=== PATIENT | male | born 1940 | race Caucasian/White ===

== ENCOUNTER → 2017-05-20 | Outpatient (CLI) | payer MEDICARE, BC ==
--- NOTE | 2017-05-22 17:56 | PE ---
EXAMINATION TYPE: PET CT fusion whole body DATE OF EXAM: 05/20/2017 CLINICAL HISTORY: 77-year-old male initial staging melanoma TECHNIQUE: Following the intravenous administration of 14.46 mCi of F-18 FDG, whole body images are performed from the skull base to the midthigh. Images are reviewed on the computer in the coronal, axial, and sagittal planes. Reconstructed rotating images are created on independent workstation and reviewed on the computer. A localization and attenuation correction CT is performed in conjunction with the PET scan. Glucose level: 118 mg/dL CTDI: 4.27mGy DLP: 530.61mGy-cm COMPARISON: None. FINDINGS: PET: Nonenlarged but focally hypermetabolic left axillary lymph node measuring 1.1 cm, max SUV 10.2. There is a tiny low posterior left axillary lymph node deep to the lateral margin of the latissimus d orsi near the level of the inferior scapular tip measuring 7 mm showing mild uptake, max SUV 2.4 (axi al image 140). Trace left effusion and lobulated subpleural masslike thickening posterior left lower lobe which show s no discrete FDG uptake and measures up to 5.2 cm wide. Hypodense lesions within both kidneys, largest measuring 4.5 cm on the left and 2.9 cm on the right d o not seem to show discrete FDG uptake, suggestive of cysts. Uptake left paramedian mid abdomen localizes to the ureter compatible with excreting FDG. Moderate uptake relating to the patient's right lower quadrant ostomy. Otherwise, physiologic FDG uptake within the neck, chest, abdomen, and pelvis. ATTENUATION CORRECTION CT: Right greater than left maxillary sinus air-fluid levels. No cervical lymphadenopathy. Moderate bilateral gynecomastia. Heart upper limits of normal in size without pericardial effusion. C oronary vessel calcifications are present in remarkable for coronary artery disease. Aorta normal jenna iber with conventional arch vessel branching anatomy. Aside from the left axillary lymph nodes mentio aiden above, no other thoracic lymphadenopathy seen. 5 mm nonobstructive left renal calculus. Renal lesions mentioned above. IVC filter. Moderate atherosc lerotic calcifications within the abdominal aorta. Right lower quadrant ostomy mentioned above. No me senteric or retroperitoneal lymphadenopathy seen. Zakia's pouch. Mcgregor catheter in place. Circumferential bladder wall thickening, intraluminal blad hortencia air, and a 1.4 cm left-sided bladder calculus. Prostatomegaly and 5.5 cm wide. No pelvic lymphade nopathy or abnormal fluid collection seen. Bones: Diffuse muscular atrophy and degenerative changes throughout the spine. IMPRESSION: 1. A 1.1 cm left axillary monika metastasis. An adjacent tiny 7 mm lower and posterior axillary lymph node shows mild uptake and is also suspicious. 2. No other evidence for metastatic disease. 3. Trace left effusion with masslike subpleural consolidation left lower lobe measuring 5.2 cm. An ar ea of rounded atelectasis is suspected. The lack of FDG uptake here makes neoplasm very unlikely. Dimmitt ssess on patient's follow-up. 4. Incidental: 5 mm nonobstructive left renal calculus, 1.4 cm bladder calculus, IVC filter, right lo wer quadrant ostomy and Zakia's pouch. 5. Incidental: Mcgregor in place. Intraluminal bladder air likely relating to instrumentation. Prostatom egaly and circumferential bladder wall thickening which may be secondary to cystitis or wall hypertro phy from BPH.
== END | disposition home or self-care (01) ==
LOC: RADPETMAIN 12:35
PROVIDERS: ATTEND Internal Medicine Hematology & Oncology
DX: C43.62 Malignant melanoma of left upper limb, including shoulder (principal); C77.3 Secondary and unspecified malignant neoplasm of axilla and upper limb lymph nodes; N20.0 Calculus of kidney; N21.0 Calculus in bladder; N40.0 Benign prostatic hyperplasia without lower urinary tract symptoms; K82.8 Other specified diseases of gallbladder; N32.89 Other specified disorders of bladder; R91.8 Other nonspecific abnormal finding of lung field; Z98.890 Other specified postprocedural states
CPT/HCPCS: 78816; A9552

== ENCOUNTER 2017-06-08 11:49 | Day surgery (SDC) | payer MEDICARE, BC ==
[2017-06-05 13:04] VITALS: BMI 25.7
--- NOTE | 2017-06-07 07:52 | P.GSHP ---
History of Present Illness H&P Date: 06/08/17 Chief Complaint: Melanoma 77-year-old male was diagnosed with melanoma involving the left upper arm. This was a thick lesion measuring 7.8 mm. This had ulceration as well as microsatellite nodules. The patient was initially referred to the [facility] melanoma clinic however the patient refused because of his difficulties with transportation. The patient is paraplegic and bedbound and has significant difficulties transporting to and from offices in hospitals. He has to pay [employer] for most of these transportation's. He would only allow definitive surgical treatment to be done here locally. A PET scan was performed which revealed 2 separate lymph nodes showing hypermetabolic activity in the left axilla measuring 7 and 11 mm. I was contacted by gynecology with a request to proceed with a wide excision and sentinel lymph node biopsy on this patient. Patient I had a long conversation by phone. He essentially refused a visit in the office but was agreeable to proceeding with a scheduled surgical procedure. Past Medical History Past Medical History: Cancer, Diabetes Mellitus, Hypertension, Skin Disorder Additional Past Medical History / Comment(s): urinary retention, hx. urinary tract infection, has a open area on stomach and pinpoint area on coccyx. Patient is in bed most of the time and has a w/c to get around the house. Has a Melanoma L upper arm.Has a ryees catheter and ileostomy. Hx. of ulcerative colitis. Severe frozen L shoulder. History of Any Multi-Drug Resistant Organisms: MRSA Date of last positivie culture/infection: 2011 MDRO Source:: Stomach Past Surgical History: Bowel Resection, Cholecystectomy, Tonsillectomy Additional Past Surgical History / Comment(s): Stent in LLL. Past Anesthesia/Blood Transfusion Reactions: No Reported Reaction Smoking Status: Never smoker - Past Family History Mother Family Medical History: Cancer Additional Family Medical History / Comment(s): Lymphoma Medications and Allergies Home Medications Medication Instructions Recorded Confirmed Type Furosemide [Lasix] 20 mg PO DAILY 11/01/13 06/05/17 History Metoprolol Tartrate [Lopressor] 50 mg PO DAILY 11/01/13 06/05/17 History Oxybutynin Chloride [Ditropan XL] 10 mg PO DAILY PRN #10 tab 11/01/13 06/05/17 Rx oxyCODONE-APAP 5-325MG [Percocet 1 tab PO Q6H 11/01/13 06/05/17 History 5-325 mg] traZODone HCL [Desyrel] 100 mg PO HS 11/01/13 06/05/17 History Ascorbic Acid [Vitamin C] 1,000 mg PO DAILY 06/05/17 06/05/17 History Cholecalciferol [Vitamin D3] 400 unit PO DAILY@1200 06/05/17 06/05/17 History Cranberry Fruit Extract [Cranberry] 200 mg PO DAILY 06/05/17 06/05/17 History Ferrous Sulfate [Feosol] 325 mg PO DAILY 06/05/17 06/05/17 History Folic Acid 1 mg PO DAILY 06/05/17 06/05/17 History Nystatin 100,000Unit/gm Cream 1 applic TOPICAL BID 06/05/17 06/05/17 History [Mycostatin Cream] Thera-Oral(Unknown Dose) 100 mg PO DAILY 06/05/17 06/05/17 History metFORMIN HCL [Glucophage] 500 mg PO BID 06/05/17 06/05/17 History Allergies Allergy/AdvReac Type Severity Reaction Status Date / Time diphenhydramine HCl Allergy Itching Verified 06/05/17 12:22 [From Benadryl] morphine Allergy Hallucinati Verified 06/05/17 12:22 ons Surgical - Exam Deferred until he arrives tomorrow. Please refer to the consultation from Dr. Grijalva. Assessment and Plan (1) Melanoma Narrative/Plan: Will proceed with wide local excision along with sentinel lymph node biopsy left axilla. Possible completion axillary node dissection. Risks of bleeding, infection, seroma, nerve injury, recurrence, poor healing, wound formation, scarring, anesthesia related complications were discussed. He understands and wishes to proceed. Status: Acute Code(s): C43.9 - MALIGNANT MELANOMA OF SKIN, UNSPECIFIED SNOMED Code(s): 725255075
[~2017-06-08 11:49] MED LIST: DEXAMETHASONE SOD PHOSPHATE 10 MG/ML 1 ML VIAL IV ONE; HEPARIN SODIUM,PORCINE 5,000 UNIT/ML 1 ML VIAL SQ ONE; ONDANSETRON 4 MG/2 ML VIAL IVP ONE; Pre Op ABX Message 1 EACH MISC MISCELLANE ONE
[2017-06-08 12:27] LABS: Glucose,Whole Blood 139 mg/dL (75-99)
[2017-06-08] MEDS: LACTATED RINGERS 1,000 ML IV SCH ×2 (12:27→22:30)
--- NOTE | 2017-06-08 14:43 | NM ---
EXAMINATION TYPE: NM sentinel node imaging DATE OF EXAM: 06/08/2017 COMPARISON: NONE HISTORY: Malignant melanoma posterior left upper arm TECHNIQUE AND FINDINGS: The procedure of sentinel lymph node injection was explained to the patient. The benefits, alternatives, and risks were discussed. An informed consent was then obtained. Overlying skin is cleaned with sterile alcohol. Lidocaine buffered with bicarbonate was used as anes thetic into the skin and subcutaneous tissue surrounding the surgical scar. Following this, 506 uCi Tc 99m Filtered Sulfur Colloid was injected into 4 equivalent doses at 12, 3, 6, and 9:00 position perez rrounding the skin incision in the posterior left upper arm. Imaging was performed. The injection sites were massaged by nuclear medicine technician for 10 minutes after injection. T he patient tolerated the procedure well without any immediate complication. The patient was kept in the radiology department for short stay after the procedure and then taken to surgery for a surgical procedure. IMPRESSION: Left posterior upper arm radiotracer injection for sentinel node localization as above.
[2017-06-08] MEDS ORDERED: GLYCOPYRROLATE 0.2 MG/ML 2 ML VIAL ONE (15:09)
[2017-06-08] MEDS ORDERED: HEPARIN SODIUM,PORCINE 5,000 UNIT/ML 1 ML VIAL ONE (15:09)
[2017-06-08] MEDS ORDERED: NEOSTIGMINE 1 MG/ML 10 ML VIAL ONE (15:09)
[2017-06-08] MEDS ORDERED: PROPOFOL 10 MG/ML 20 ML VIAL IV ONE (15:09)
[2017-06-08] MEDS ORDERED: fentaNYL (PF) 50 MCG/ML 2 ML AMP ONE (15:09)
[2017-06-08] MEDS ORDERED: PHENYLEPHRINE-0.9% NACL SYG 1 MG/10 ML SYRINGE ONE (15:09)
[2017-06-08] MEDS ORDERED: ROCURONIUM BROMIDE 10 MG/ML 10 ML VIAL IV ONE (15:09)
[2017-06-08] MEDS ORDERED: MIDAZOLAM 2 MG/2 ML VIAL ONE (15:09)
[2017-06-08] MEDS ORDERED: LIDOCAINE 1% INJ 10MG/ML (20 ML MDV) ONE (15:09)
--- NOTE | 2017-06-08 15:20 | P.HPADDEND ---
H&P Addendum H&P Addendum Date: 06/08/17 Seen in preop after his nuclear medicine injection. Exam: Vertical scar present posterior to the posterior axillary line on the left. Scar is approximately 4 cm in length, no surrounding melanotic lesions. Patient has a significant degree of limitation to the movement of the left shoulder and is unable to bring the humerus more than 20-30 and an anterior or lateral position. No palpable lymph nodes. The lymphoscintigraphy scan revealed no uptake in the axilla or the neck. We will place the patient under general anesthesia. With muscle relaxation will reevaluate our ability to operate on the axilla. Tentatively still plan to proceed with methylene blue injection and sentinel lymph node biopsy in the axilla. Possible lymph node dissection. He discussed the possibility of leaving a drain. We also discussed the possibility of aborting our lymph node dissection if the limitation of mobility at the shoulder made this procedure unsafe. Risks of bleeding, infection, seroma, nerve injury, wound formation, recurrence was reviewed. He and his understand and wish to proceed.
[2017-06-08] MEDS ORDERED: METHYLENE BLUE 10 MG/ML (10 ML VIAL) INJ ONE (15:32)
[2017-06-08] MEDS ORDERED: SODIUM CHLORIDE 0.9% 100 ML with ceFAZolin 2,000 MG IV ONE ×2 (15:35)
[2017-06-08] MEDS ORDERED: LACTATED RINGERS 1,000 ML IV ONE ×2 (16:37→17:07)
[2017-06-08] MEDS ORDERED: BACITRACIN OINT 1 EACH PACKET TOPICAL ONE (17:15)
[2017-06-08] MEDS ORDERED: NALOXONE 0.4 MG/ML 1 ML VIAL IV PRN (17:38)
[2017-06-08] MEDS ORDERED: HYDROmorphone 4 MG/ML 1 ML SYRINGE IVP PRN (17:38)
[2017-06-08] MEDS ORDERED: ONDANSETRON 4 MG/2 ML VIAL IVP PRN (17:38)
[2017-06-08] MEDS ORDERED: HYDROcodone/APAP 5-325MG 1 EACH TAB PO PRN (17:38)
[2017-06-08] MEDS: HYDROmorphone 0.5 MG/0.5 ML SYRINGE IVP PRN ×4 (17:45→18:15)
--- NOTE | 2017-06-08 17:50 | P.OP ---
Date of Procedure: 06/08/17 Procedure(s) Performed: PREOPERATIVE DIAGNOSIS: Left arm melanoma POSTOPERATIVE DIAGNOSIS: Same PROCEDURE: Wide excision left arm melanoma, left axillary lymph node dissection SURGEON: Surjit EBL: 10 mL ANESTHESIA: Gen. COMPLICATIONS: None OPERATIVE PROCEDURE: Patient is brought in place never table in the supine position. The patient was placed under general anesthesia. The patient's melanoma scar was present in the most proximal posterior lateral brachial region. The skin was prepped. I then injected 3 mL of methylene blue into the subcutaneous tissues surrounding the prior scar site. The arm and axillary region was prepped and draped in the usual sterile fashion at that time. Using the portable [place] counter the axilla was inspected. There was no activity which was consistent with the lymphoscintigraphy scan that showed no passage of contrast beyond the injection site. The neck was also examined and appeared normal. A curvilinear incision was made along the inferior axillary hairline. Dissection through the subcutaneous tissues and the clavipectoral fascia took place. The probe was again used and no activity was identified. I could not visualize any bluish discoloration. Upon inspecting the axillary contents there were 2 pigmented appearing nodes I proceeded with a axillary node dissection. Visualization was quite limited because of the patient's frozen shoulder. I was able to visualize the course of the axillary vein the thoracodorsal vasculature and the course of the long thoracic nerve. The axillar contents within that space was excised using electrocautery and the Harmonic scalpel. Larger vessels were ligated using 3-0 silk ties. The operative site was irrigated and no bleeding was seen. The subcutaneous tissues were closed using 3-0 Vicryl sutures and the skin using a running 4-0 Monocryl subcuticular suture. Next the prior scar site was addressed. An elliptical incision was made around the prior scar with a 1.5 cm circumferential margin. Dissection through the subcutaneous tissues took place using electrocautery. The saphenous tissues were then reapproximated using 3-0 Vicryl sutures and the skin using 4-0 nylon sutures. A middle horizontal mattress suture was placed and then on the either side of that 2 separate running 4-0 nylon sutures were placed. Sterile dressings were applied to both locations. A 19-Khmer channel drain was placed in the axillary space and brought out inferiorly. This was sutured to the skin using a 2-0 silk stitch. DISPOSITION: Stable to recovery room
[2017-06-08 18:42] LABS: Glucose,Whole Blood 132 mg/dL (75-99)
[2017-06-08] MEDS ORDERED: HYDROmorphone 0.5 MG/0.5 ML SYRINGE IVP PRN (19:15)
[2017-06-08] MEDS: oxyCODONE-APAP 7.5-325MG 1 EACH TAB PO PRN (19:29)
[2017-06-08] MEDS ORDERED: OXYBUTYNIN 10 MG TAB.ER.24 PO PRN (20:46)
[2017-06-08] MEDS ORDERED: traZODone HCL 100 MG TAB PO SCH (21:00)
[2017-06-08] MEDS ORDERED: METOPROLOL TARTRATE 50 MG TAB PO SCH (21:28)
--- NOTE | 2017-06-08 21:51 | CONS ---
CONSULTATION REASON FOR CONSULTATION: Advice regarding diabetes mellitus and other medical issues, requested by Dr. Eddy. HISTORY OF PRESENT ILLNESS: This 77-year-old gentleman has a past medical history of diabetes mellitus, hypertension, history of urinary retention, history of bowel resection, cholecystectomy, depression. HOME MEDICATIONS: 1. Multivitamins 1 p.o. daily. 2. Nystatin. 3. Lopressor 50 mg p.o. daily. 4. Oxycodone 5 mg q.6 p.r.n. 5. Cranberry 200 mg p.o. daily. 6. Vitamin C 1000 mg daily. 7. Folic acid 1 mg daily. 8. Iron sulfate 325 mg daily. 9. Vitamin D3 400 units daily. 10.Glucophage 500 mg p.o. b.i.d. 11.Desyrel 100 mg p.o. at bedtime. 12.Ditropan XL 10 mg daily p.r.n. 13.Lasix 20 mg p.o. daily. 14.Percocet 7.5 mg 1 tablet q.6 p.r.n. ALLERGIES: 1. BENADRYL. 2. LATEX. 3. MORPHINE. FAMILY HISTORY: History of cancer, lymphoma. SOCIAL HISTORY: No history of smoking. No history of alcohol intake. REVIEW OF SYSTEMS: ENT: No diminished hearing. No diminished vision. CARDIOVASCULAR SYSTEM: No angina, palpitations. RESPIRATORY SYSTEM: No cough, hemoptysis. GI: No nausea, vomiting. : No dysuria or retention. NERVOUS SYSTEM: No numbness, weakness. ALLERGY/IMMUNOLOGY: No asthma, hayfever. MUSCULOSKELETAL: As mentioned earlier. HEMATOLOGY/ONCOLOGY: As mentioned earlier. ENDOCRINE: As mentioned earlier. CONSTITUTIONAL: As mentioned earlier. DERMATOLOGY: Negative. RHEUMATOLOGY: Negative. PSYCHIATRY: As mentioned earlier. PHYSICAL EXAMINATION: Patient alert and oriented x3. Pulse 102, blood pressure 142/70, respiration 18, temperature 97.4, pulse ox 97% on room air. HEENT: Conjunctivae normal. Oral mucosa moist. NECK: No jugular venous distention. No carotid bruit. No lymph node enlargement. CARDIOVASCULAR SYSTEM: S1, S2 muffled. No S3. No S4. RESPIRATORY SYSTEM: Breath sounds diminished at the bases. A few rhonchi. No crackles. ABDOMEN: Soft, nontender. No mass palpable. LEGS: No edema. No swelling. NERVOUS SYSTEM: Higher functions as mentioned earlier. No focal deficit. Motor or sensory deficit. EXAMINATION OF LEFT ARM: Status post surgery with lymph node resection. SKIN: As mentioned earlier. JOINTS: No active deforming arthropathy. LABS: Accu-Cheks 139, 132. ASSESSMENT: 1. Status post wide excision of the left arm melanoma, left axillary lymph node dissection. 2. History of diabetes mellitus, type 2. 3. Hypertension. 4. Urinary retention. 5. Bowel resection. 6. Cholecystectomy. 7. History of tonsillectomy. 8. History of methicillin-resistant Staphylococcus aureus. 9. History of urinary tract infection. RECOMMENDATIONS AND DISCUSSION: I recommend to continue current medication, continue symptomatic treatment. I would recommend initiating home medications. Accu-Cheks before meals and at bedtime. Incentive spirometry. DVT prophylaxis. We will follow the patient closely with you. The patient may be asked to follow with his primary physician closely. Thank you, Dr. Eddy, for letting us participate in the care of this patient. MMODL / IJN: [id number] /
[2017-06-08] MEDS: metFORMIN 500 MG TAB PO SCH (22:29)
[2017-06-08] MEDS: NYSTATIN 100,000UNIT/GM CREAM 30 GM TUBE TOPICAL SCH (22:29)
[2017-06-09] MEDS: INSULIN ASPART 100 UNIT/ML 1 ML 10 ML VIAL SQ SCH ×3 (00:48→13:10)
[2017-06-09] MEDS: oxyCODONE-APAP 7.5-325MG 1 EACH TAB PO PRN ×2 (00:51→07:06)
[2017-06-09] MEDS: D5-0.45% NACL WITH KCL 20MEQ/L 1,000 ML IV SCH ×2 (00:58→03:19)
[2017-06-09 06:54] LABS: Glucose,Whole Blood 124 mg/dL (75-99)
[2017-06-09] MEDS ORDERED: METOPROLOL TARTRATE 50 MG TAB PO SCH (09:00)
[2017-06-09] MEDS ORDERED: FERROUS SULFATE 325 MG TAB PO SCH (09:00)
[2017-06-09] MEDS ORDERED: FUROSEMIDE 20 MG TAB PO SCH (09:00)
[2017-06-09 09:39] VITALS: BP 115/63; PULSE 68; RESP 16; TEMP 98.2
[2017-06-09] MEDS: NYSTATIN 100,000UNIT/GM CREAM 30 GM TUBE TOPICAL SCH (09:52)
[2017-06-09] MEDS: metFORMIN 500 MG TAB PO SCH (09:53)
--- NOTE | 2017-06-09 09:54 | P.DS ---
<Dara Mcelroy M - Last Filed: 06/09/17 09:40> Providers Expected date of discharge: 06/09/17 Attending physician: Mal Eddy Consults: 06/08/17 18:51 Consult Physician Routine Consulting Provider: Stella Campbell Consult Reason/Comments: Medical management Do you want consulting provider notified?: Yes Primary care physician: Stated None Hospital Course: 77-year-old male who was diagnosed with myeloma involving the left upper arm. Patient initially was referred to the [facility] myeloma clinic however the patient refused because of the difficulty with transportation. Patient is a paraplegic bedbound. Has significant difficulty with transferring to and from hospitals and offices. PET scan was performed did show 2 separate lymph nodes showing hypermetabolic activity in the left axillary measuring [address] Eddy was contacted by Dr. Grijalva request for a wide excision and sentinel lymph node biopsy patient underwent procedure on June 08 wide excision left arm melanoma, left axillary lymph node dissection was done postprocedure LAMONT drain in place suture line no redness. Patient has a visiting physician and his is his primary care provider patient was felt to be hemodynamically stable and appropriate proceed with a discharge to home patient was discharged via the EMS system Impression discharge diagnosis Postop June 08 wide excision left arm myeloma, left axillary lymph node dissection Diagnosed myeloma involving the left upper arm Chronic debility wheelchair bedbound The above impression and plan of care have been discussed and directed by signing physician. Dara Mcelroy nurse practitioner acting as scribe for signing physician. Plan - Discharge Summary Discharge Rx Participant: No New Discharge Prescriptions: New oxyCODONE HCL/ACETAMINOPHEN [Percocet 7.5-325 mg] 1 tab PO Q6HR PRN #30 tab PRN Reason: pAIN Continue Oxybutynin Chloride [Ditropan XL] 10 mg PO DAILY PRN #10 tab PRN Reason: Spasms traZODone HCL [Desyrel] 100 mg PO HS Furosemide [Lasix] 20 mg PO DAILY Metoprolol Tartrate [Lopressor] 50 mg PO HS oxyCODONE-APAP 5-325MG [Percocet 5-325 mg] 1 tab PO Q6H Nystatin 100,000Unit/gm Cream [Mycostatin Cream] 1 applic TOPICAL BID Folic Acid 1 mg PO DAILY Cholecalciferol [Vitamin D3] 400 unit PO DAILY@1200 metFORMIN HCL [Glucophage] 500 mg PO BID Ferrous Sulfate [Feosol] 325 mg PO DAILY Thera-Oral(Unknown Dose) 100 mg PO DAILY Cranberry Fruit Extract [Cranberry] 200 mg PO DAILY Ascorbic Acid [Vitamin C] 1,000 mg PO DAILY Discharge Medication List Furosemide [Lasix] 20 mg PO DAILY 11/01/13 [History] Metoprolol Tartrate [Lopressor] 50 mg PO HS 11/01/13 [History] Oxybutynin Chloride [Ditropan XL] 10 mg PO DAILY PRN #10 tab 11/01/13 [Rx] oxyCODONE-APAP 5-325MG [Percocet 5-325 mg] 1 tab PO Q6H 11/01/13 [History] traZODone HCL [Desyrel] 100 mg PO HS 11/01/13 [History] Ascorbic Acid [Vitamin C] 1,000 mg PO DAILY 06/05/17 [History] Cholecalciferol [Vitamin D3] 400 unit PO DAILY@1200 06/05/17 [History] Cranberry Fruit Extract [Cranberry] 200 mg PO DAILY 06/05/17 [History] Ferrous Sulfate [Feosol] 325 mg PO DAILY 06/05/17 [History] Folic Acid 1 mg PO DAILY 06/05/17 [History] Nystatin 100,000Unit/gm Cream [Mycostatin Cream] 1 applic TOPICAL BID 06/05/17 [ History] Thera-Oral(Unknown Dose) 100 mg PO DAILY 06/05/17 [History] metFORMIN HCL [Glucophage] 500 mg PO BID 06/05/17 [History] oxyCODONE HCL/ACETAMINOPHEN [Percocet 7.5-325 mg] 1 tab PO Q6HR PRN #30 tab 12/16 [Rx] Follow up Appointment(s)/Referral(s): Mal Eddy MD [Medical Doctor] - 1 Week [facility] Visiting Nurse, [NON-STAFF] - Lane Damon MD [STAFF PHYSICIAN] - 1 Week Patient Instructions/Handouts: Hernan-Vincent Drain Care (DC) Activity/Diet/Wound Care/Special Instructions: No tub bath for six weeks. Shower daily. No lifting over 4 pounds for the next 6 weeks. Monitor LAMONT drain and record. May use ice packs to surgical site. Continue follow-up with visiting physicians Discharge Disposition: HOME WITH HOME HEALTH SERVICES <Mal Eddy - Last Filed: 06/09/17 14:16> - Discharge Diagnosis(es) (1) Melanoma Status: Acute Hospital Course: As above. Patient doing well. Stable for discharge.
[2017-06-09 11:42] LABS: Hemoglobin A1C 5.5 % (4.0-6.0)
[2017-06-09] MEDS ORDERED: MULTIVITAMINS, THERA 1 EACH TAB PO SCH (12:00)
[2017-06-09] MEDS ORDERED: FOLIC ACID 1 MG TAB PO SCH (12:00)
[2017-06-09] MEDS ORDERED: CHOLECALCIFEROL 400 UNIT TAB PO SCH (12:00)
--- NOTE | 2017-06-09 18:49 | PN ---
PROGRESS NOTE DATE OF SERVICE: 06/09/2017. INTERVAL HISTORY: This 77-year-old gentleman who was admitted after melanoma surgery is being closely monitored. No chest pain. No palpitations. No fever. PHYSICAL EXAM: Alert and oriented x3. Pulse 68, blood pressure 115/56, respirations 16, temperature 98.2, pulse ox 98% on room air. HEENT: Conjunctivae normal. Oral mucosa moist. NECK: No jugular venous distention. No carotid bruit. No lymph node enlargement. CARDIOVASCULAR: S1, S2. RESPIRATORY: Breath sounds diminished in the bases. No rhonchi. No crackles. ABDOMEN: Soft, nontender. LEGS: No edema, no swelling. Left arm, status post surgery. LABS: Accu-Cheks 132, 111 and 125. Hemoglobin A1c is 5.5. ASSESSMENT: 1. Status post wide excision of the left arm melanoma, left axillary lymph node dissection. 2. History of diabetes mellitus type 2. 3. Hypertension. 4. Urinary retention. 5. Bowel resection. 6. History of cholecystectomy. 7. History of tonsillectomy. 8. History of Methicillin-resistant Staphylococcus aureus. 9. History urinary tract infection. RECOMMENDATION AND DISCUSSION: I recommend to continue current management and symptomatic treatment. Otherwise at this time I would recommend monitor closely and monitor Accu-Cheks a.c. and at bedtime and closely follow with primary physician. Further recommendations to follow. MMODL / IJN: [id number] /
--- NOTE | 2017-06-13 12:27 | CDI ---
Outpatient Documentation Clarification Form Date: 06/13/17 CDS/Automotive Internet Sales Consultant Name: Steff Dodd Phone: If any questions, call Irma Hodges Histologic Technician at [phone] Patient Name: Aurelio Mireles Admit Date: 06/08/17 Discharge Date: 06/09/17 ATTENTION: The [facility] Coding Staff appreciate your assistance in clarifying documentation. Please respond to the clarification below the line at the bottom and electronically sign. The [facility] Coding staff will review the response and follow-up if needed. Please note: Queries are made part of the Legal Health Record. If you have any questions, please contact the Histologic Technician. Dear Dr. Eddy What is the size (cm) of the left arm melanoma excision? What is the length (cm) of the left arm closure/repair? Thank you for your kind consideration. size 3cm, length 6cm MTDD
--- NOTE | 2017-07-12 12:02 | CDI ---
Outpatient Documentation Clarification Form Date: 07/11/17 CDS/Fruit Canner Name: Steff Dodd Phone: If any questions, call Irma Hodges Insurance Job Titles at [phone] Patient Name: Aurelio Mireles Admit Date: 06/08/17 Discharge Date: 06/09/17 ATTENTION: The [facility] Coding Staff appreciate your assistance in clarifying documentation. Please respond to the clarification below the line at the bottom and electronically sign. The [facility] Coding staff will review the response and follow-up if needed. Please note: Queries are made part of the Legal Health Record. If you have any questions, please contact the Insurance Job Titles. Dear Dr. Eddy What is the size (cm) of the left arm melanoma excision? What is the length (cm) of the left arm closure/repair? Thank you for your kind consideration. MTDD
== END 2017-06-09 13:22 | disposition home health service (06) ==
LOC: OR 11:49 → 3OBS 17:25 → OR 06-09 13:22
PROVIDERS: ATTEND Surgery
DX: C43.62 Malignant melanoma of left upper limb, including shoulder (principal); C77.3 Secondary and unspecified malignant neoplasm of axilla and upper limb lymph nodes; G82.20 Paraplegia, unspecified; Z74.01 Bed confinement status; Z99.3 Dependence on wheelchair; E11.9 Type 2 diabetes mellitus without complications; I10 Essential (primary) hypertension; R33.9 Retention of urine, unspecified; M75.02 Adhesive capsulitis of left shoulder; F32.9 Major depressive disorder, single episode, unspecified; Z93.2 Ileostomy status; Z90.49 Acquired absence of other specified parts of digestive tract; Z87.440 Personal history of urinary (tract) infections; Z86.14 Personal history of Methicillin resistant Staphylococcus aureus infection; Z80.7 Family history of other malignant neoplasms of lymphoid, hematopoietic and related tissues; Z79.84 Long term (current) use of oral hypoglycemic drugs; Z79.891 Long term (current) use of opiate analgesic; Z79.899 Other long term (current) drug therapy; Z88.5 Allergy status to narcotic agent; Z88.8 Allergy status to other drugs, medicaments and biological substances; Z91.040 Latex allergy status
CPT/HCPCS: 11603; 12032; 38525; 88305; 88342; 88307; 88341; 83036; 78195; A9541; J2250; J1644; J1100; J2710; J2405; J0690; J2001; Q9968; J3010; J2370; J2704; J1170

== ENCOUNTER 2017-07-28 17:46 | Inpatient (IN) | payer MEDICARE, BC ==
[2017-07-28] MEDS ORDERED: SODIUM CHLORIDE 0.9% 500 ML IV STA (18:22)
[2017-07-28] MEDS ORDERED: SODIUM CHLORIDE 0.9% 1,000 ML IV STA ×2 (18:22)
[2017-07-28] MEDS ORDERED: ONDANSETRON 4 MG/2 ML VIAL IVP STA (18:22)
[2017-07-28] MEDS ORDERED: diphenhydrAMINE 50 MG/ML 1 ML VIAL IVP STA (18:23)
[2017-07-28] MEDS ORDERED: PANTOPRAZOLE 40 MG/10 ML VIAL IVP STA (18:23)
--- NOTE | 2017-07-28 19:02 | ED ---
General Adult HPI - General Chief complaint: Allergic Reaction Stated complaint: Allergic Reaction Time Seen by Provider: 07/28/17 18:14 Source: patient, EMS, RN notes reviewed, old records reviewed Mode of arrival: EMS Limitations: no limitations - History of Present Illness Initial comments: This is a 77-year-old male to the ER for evaluation. Patient coming in for evaluation of multiple medical issues abdominal pain chest pain nausea. Decreased appetite decreased water intake decreased urine output. Rash on bilateral lower upper extremities, significant swelling of left upper extremity as well as scrotal swelling. Patient was seen by family doctor started on medication for reflux with no significant improvement in any of the symptoms. He also thinks that may have started his rash - Related Data Home Medications Medication Instructions Recorded Confirmed Metoprolol Tartrate [Lopressor] 50 mg PO HS 11/01/13 07/28/17 oxyCODONE-APAP 5-325MG [Percocet 1 tab PO Q6H 11/01/13 07/28/17 5-325 mg] traZODone HCL [Desyrel] 100 mg PO HS 11/01/13 07/28/17 Ascorbic Acid [Vitamin C] 1,000 mg PO DAILY 06/05/17 07/28/17 Cholecalciferol [Vitamin D3] 400 unit PO DAILY@1200 06/05/17 07/28/17 Cranberry Fruit Extract [Cranberry] 200 mg PO DAILY 06/05/17 07/28/17 Ferrous Sulfate [Feosol] 325 mg PO DAILY 06/05/17 07/28/17 Folic Acid 1 mg PO DAILY 06/05/17 07/28/17 Nystatin 100,000Unit/gm Cream 1 applic TOPICAL DAILY 06/05/17 07/28/17 [Mycostatin Cream] metFORMIN HCL [Glucophage] 500 mg PO BID 06/05/17 07/28/17 Mesalamine [Canasa] 1,000 mg RECTAL HS 07/28/17 07/28/17 Multivitamins, Thera [Multivitamin 1 tab PO DAILY 07/28/17 07/28/17 (formulary)] Omeprazole [PriLOSEC] 20 mg PO DAILY 07/28/17 07/28/17 Oxybutynin Chloride [Ditropan Oral 10 mg PO DAILY 07/28/17 07/28/17 Soln] Allergies Allergy/AdvReac Type Severity Reaction Status Date / Time diphenhydramine HCl Allergy Itching Verified 07/28/17 18:15 [From Benadryl] latex Allergy Unknown Verified 07/28/17 18:15 omeprazole [From Prilosec] Allergy Rash/Hives Verified 07/29/17 08:13 morphine AdvReac Hallucinati Verified 07/28/17 18:15 ons Review of Systems ROS Statement: Those systems with pertinent positive or pertinent negative responses have been documented in the HPI. ROS Other: All systems not noted in ROS Statement are negative. Past Medical History Past Medical History: Cancer, Diabetes Mellitus, Hypertension, Skin Disorder Additional Past Medical History / Comment(s): urinary retention, hx. urinary tract infection, has a open area on stomach and pinpoint area on coccyx. Patient is in bed most of the time and has a w/c to get around the house. Has a Melanoma L upper arm.Has a reyes catheter and ileostomy. Hx. of ulcerative colitis. Severe frozen L shoulder. History of Any Multi-Drug Resistant Organisms: MRSA Date of last positivie culture/infection: 2011 MDRO Source:: Stomach wound Past Surgical History: Bowel Resection, Cholecystectomy, Tonsillectomy Additional Past Surgical History / Comment(s): Stent in LLL., Ileostomy with bowel resection 2006, Jun 08 2017- lypmnode removal- Past Anesthesia/Blood Transfusion Reactions: No Reported Reaction Past Psychological History: No Psychological Hx Reported, Depression Smoking Status: Never smoker Past Alcohol Use History: None Reported Past Drug Use History: None Reported - Past Family History Mother Family Medical History: Cancer Additional Family Medical History / Comment(s): Lymphoma General Exam Limitations: no limitations General appearance: alert, in no apparent distress Head exam: Present: atraumatic, normocephalic, normal inspection Eye exam: Present: normal appearance, PERRL, EOMI. Absent: scleral icterus, conjunctival injection, periorbital swelling ENT exam: Present: normal exam, mucous membranes dry Neck exam: Present: normal inspection. Absent: tenderness, meningismus, lymphadenopathy Respiratory exam: Present: normal lung sounds bilaterally. Absent: respiratory distress, wheezes, rales, rhonchi, stridor Cardiovascular Exam: Present: normal rhythm, tachycardia, normal heart sounds. Absent: systolic murmur, diastolic murmur, rubs, gallop, clicks GI/Abdominal exam: Present: soft, normal bowel sounds. Absent: distended, tenderness, guarding, rebound, rigid Extremities exam: Present: normal inspection, full ROM, normal capillary refill. Absent: tenderness, pedal edema, joint swelling, calf tenderness Back exam: Present: normal inspection Neurological exam: Present: alert, oriented X3, CN II-XII intact Psychiatric exam: Present: normal affect, normal mood Skin exam: Present: warm, dry, intact, normal color. Absent: rash Course Vital Signs 07/28/17 07/28/17 07/28/17 17:54 19:49 21:21 Temperature 97.3 F L Pulse Rate 125 H 114 H 106 H Respiratory 18 20 18 Rate Blood Pressure 136/72 126/66 117/59 O2 Sat by Pulse 99 97 96 Oximetry EKG Findings - EKG Comments: EKG Findings:: EKG shows sinus tach rate of 110, NE 1:30, QRS 74, QTC 443 QTC 443 Medical Decision Making - Medical Decision Making 77 male the ER for evaluation multiple issues and complaints. Patient having ALLERGIC reaction recent placement of ileostomy secondary to ulcerative colitis. Patient having increased pain, positive UTI, significant dehydration. - Lab Data Result diagrams: 07/30/17 17:55 07/30/17 06:52 Lab Results 07/28/17 07/28/17 07/28/17 Range/Units 19:18 19:18 19:18 WBC 18.9 H (3.8-10.6) k/uL RBC 5.10 (4.30-5.90) m/uL Hgb 15.3 (13.0-17.5) gm/dL Hct 47.7 (39.0-53.0) % MCV 93.6 (80.0-100.0) fL MCH 30.0 (25.0-35.0) pg MCHC 32.1 (31.0-37.0) g/dL RDW 12.5 (11.5-15.5) % Plt Count 300 (150-450) k/uL Neutrophils % 81 % Lymphocytes % 10 % Monocytes % 4 % Eosinophils % 4 % Basophils % 0 % Neutrophils # 15.2 H (1.3-7.7) k/uL Lymphocytes # 1.9 (1.0-4.8) k/uL Monocytes # 0.8 (0-1.0) k/uL Eosinophils # 0.8 H (0-0.7) k/uL Basophils # 0.0 (0-0.2) k/uL PT (9.0-12.0) sec INR (<1.2) APTT (22.0-30.0) sec Sodium 137 (137-145) mmol/L Potassium 4.7 (3.5-5.1) mmol/L Chloride 99 (98-107) mmol/L Carbon Dioxide 25 (22-30) mmol/L Anion Gap 13 mmol/L BUN 23 H (9-20) mg/dL Creatinine 0.90 (0.66-1.25) mg/dL Est GFR (CKD-EPI)AfAm >90 (>60 ml/min/1.73 sqM) Est GFR (CKD-EPI)NonAf 83 (>60 ml/min/1.73 sqM) Glucose 118 H (74-99) mg/dL Calcium 9.4 (8.4-10.2) mg/dL Phosphorus 3.5 (2.5-4.5) mg/dL Magnesium 1.6 (1.6-2.3) mg/dL Total Bilirubin 0.8 (0.2-1.3) mg/dL AST 69 H (17-59) U/L ALT 32 (21-72) U/L Alkaline Phosphatase 151 H (38-126) U/L Total Creatine Kinase 36 L (55-170) U/L CK-MB (CK-2) 0.4 (0.0-2.4) ng/mL CK-MB (CK-2) Rel Index 1.1 Troponin I <0.012 (0.000-0.034) ng/mL Total Protein 6.8 (6.3-8.2) g/dL Albumin 3.2 L (3.5-5.0) g/dL Urine Color Urine Appearance (Clear) Urine pH (5.0-8.0) Ur Specific [place] (1.001-1.035) Urine Protein (Negative) Urine Glucose (UA) (Negative) Urine Ketones (Negative) Urine Blood (Negative) Urine Nitrite (Negative) Urine Bilirubin (Negative) Urine Urobilinogen (<2.0) mg/dL Ur Leukocyte Esterase (Negative) Urine RBC (0-5) /hpf Urine WBC (0-5) /hpf Urine WBC Clumps (None) /hpf Ur Squamous Epith Cells (0-4) /hpf Urine Bacteria (None) /hpf Urine Mucus (None) /hpf 07/28/17 07/28/17 Range/Units 19:18 19:47 WBC (3.8-10.6) k/uL RBC (4.30-5.90) m/uL Hgb (13.0-17.5) gm/dL Hct (39.0-53.0) % MCV (80.0-100.0) fL MCH (25.0-35.0) pg MCHC (31.0-37.0) g/dL RDW (11.5-15.5) % Plt Count (150-450) k/uL Neutrophils % % Lymphocytes % % Monocytes % % Eosinophils % % Basophils % % Neutrophils # (1.3-7.7) k/uL Lymphocytes # (1.0-4.8) k/uL Monocytes # (0-1.0) k/uL Eosinophils # (0-0.7) k/uL Basophils # (0-0.2) k/uL PT 10.9 (9.0-12.0) sec INR 1.1 (<1.2) APTT 29.0 (22.0-30.0) sec Sodium (137-145) mmol/L Potassium (3.5-5.1) mmol/L Chloride (98-107) mmol/L Carbon Dioxide (22-30) mmol/L Anion Gap mmol/L BUN (9-20) mg/dL Creatinine (0.66-1.25) mg/dL Est GFR (CKD-EPI)AfAm (>60 ml/min/1.73 sqM) Est GFR (CKD-EPI)NonAf (>60 ml/min/1.73 sqM) Glucose (74-99) mg/dL Calcium (8.4-10.2) mg/dL Phosphorus (2.5-4.5) mg/dL Magnesium (1.6-2.3) mg/dL Total Bilirubin (0.2-1.3) mg/dL AST (17-59) U/L ALT (21-72) U/L Alkaline Phosphatase (38-126) U/L Total Creatine Kinase (55-170) U/L CK-MB (CK-2) (0.0-2.4) ng/mL CK-MB (CK-2) Rel Index Troponin I (0.000-0.034) ng/mL Total Protein (6.3-8.2) g/dL Albumin (3.5-5.0) g/dL Urine Color Light Red Urine Appearance Cloudy (Clear) Urine pH 6.0 (5.0-8.0) Ur Specific [place] 1.019 (1.001-1.035) Urine Protein 1+ H (Negative) Urine Glucose (UA) Negative (Negative) Urine Ketones Negative (Negative) Urine Blood Trace H (Negative) Urine Nitrite Negative (Negative) Urine Bilirubin 1+ H (Negative) Urine Urobilinogen <2.0 (<2.0) mg/dL Ur Leukocyte Esterase Large H (Negative) Urine RBC 17 H (0-5) /hpf Urine WBC >182 H (0-5) /hpf Urine WBC Clumps Many H (None) /hpf Ur Squamous Epith Cells 1 (0-4) /hpf Urine Bacteria Many H (None) /hpf Urine Mucus Many H (None) /hpf - Radiology Data Radiology results: report reviewed (Left arm ultrasound negative for DVT, scrotal ultrasound negative, x-ray abdominal series negative), image reviewed Disposition Clinical Impression: Allergic reaction, Urticaria, UTI (urinary tract infection), Leukocytosis, Tachycardia, Dehydration Disposition: ADMITTED IP TO THIS HOSP Condition: Fair
[2017-07-28] MEDS ORDERED: oxyCODONE-APAP 5-325MG 1 EACH TAB PO STA (19:21)
[2017-07-28 19:30] LABS: Basophils % (A) 0 %; Eosinophils # (A) 0.8 k/uL (0-0.7); Eosinophils % (A) 4 %; HCT 47.7 % (39.0-53.0); HGB 15.3 gm/dL (13.0-17.5); Lymphocytes # (A) 1.9 k/uL (1.0-4.8); Lymphocytes % (A) 10 %; MCHC 32.1 g/dL (31.0-37.0); MCV 93.6 fL (80.0-100.0); Mean Platelet Volume 6.7; Monocytes # (A) 0.8 k/uL (0-1.0); Monocytes % (A) 4 %; Neutrophils # (A) 15.2 k/uL (1.3-7.7); Neutrophils % (A) 81 %; Platelet Count 300 k/uL (150-450); RDW 12.5 % (11.5-15.5); WBC 18.9 k/uL (3.8-10.6)
[2017-07-28 19:39] LABS: INR 1.1 (<1.2); Prothrombin Time 10.9 sec (9.0-12.0)
--- NOTE | 2017-07-28 19:42 | XR ---
EXAMINATION TYPE: XR abdomen acute w cxr DATE OF EXAM: 07/28/2017 COMPARISON: 11/01/2013 HISTORY: Abdominal pain TECHNIQUE: 4 views FINDINGS: There is no sign of intestinal obstruction or pneumoperitoneum. Fecal pattern is normal. There is mil d linear density at the left lung base. There is no heart failure. Heart size is normal. There are ch est leads. There are no pathologic calcifications over the kidneys. Inferior vena cava filter is noted. IMPRESSION: There is some pleural diaphragmatic scarring at the left lung base. Nonacute abdomen. No change krystian red to old exam.
[2017-07-28 19:50] LABS: Creatine Kinase 36 U/L (55-170)
[2017-07-28 19:54] LABS: ALT 32 U/L (21-72); AST 69 U/L (17-59); Albumin 3.2 g/dL (3.5-5.0); Alkaline Phosphatase 151 U/L (38-126); Anion Gap 13 mmol/L; Blood Urea Nitrogen 23 mg/dL (9-20); Calcium 9.4 mg/dL (8.4-10.2); Carbon Dioxide 25 mmol/L (22-30); Chloride 99 mmol/L (98-107); Glucose 118 mg/dL (74-99); Magnesium 1.6 mg/dL (1.6-2.3); Phosphorus 3.5 mg/dL (2.5-4.5); Potassium 4.7 mmol/L (3.5-5.1); Sodium 137 mmol/L (137-145); Total Bilirubin 0.8 mg/dL (0.2-1.3); Total Protein 6.8 g/dL (6.3-8.2)
[2017-07-28 20:04] LABS: Creatine Kinase MB 0.4 ng/mL (0.0-2.4); Troponin I <0.012 ng/mL (0.000-0.034)
[2017-07-28 20:08] LABS: Appearance,Urine Cloudy (Clear); Bacteria,Urine Many /hpf; Bilirubin,Urine 1+ (Negative); Blood,Urine Trace (Negative); Color,Urine Light Red; Glucose,Urine (UA) Negative (Negative); Ketones,Urine Negative (Negative); Leukocyte Esterase,Urine Large (Negative); Mucus,Urine Many /hpf; Nitrite,Urine Negative (Negative); Protein,Urine 1+ (Negative); RBC,Urine 17 /hpf (0-5); Specific Gravity,Urine 1.019 (1.001-1.035); Squamous Epithelial Cell,Urine 1 /hpf (0-4); Urobilinogen,Urine <2.0 mg/dL (<2.0); WBC,Urine >182 /hpf (0-5)
[2017-07-28] MEDS ORDERED: cefTRIAXone IN SWFI 2,000 MG/20 ML SYRINGE IVP STA (20:15)
[2017-07-28] MEDS ORDERED: RX INFO: IV CONTRAST WAS GIVEN 1 EACH MISC MISCELLANE PRN ×2 (20:17→21:58)
--- NOTE | 2017-07-28 21:17 | US ---
EXAMINATION TYPE: US venous doppler duplex UE LT DATE OF EXAM: 07/28/2017 COMPARISON: NONE CLINICAL HISTORY: Pain. upper arm swelling, h/o 8 lymph nodes removed from left axilla due to melanom a diagnosis 3 years ago, no h/o dvt, severe frozen shoulder makes imaging challenging SIDE PERFORMED: Left Left Arm: Appears negative for DVT, soft tissue swelling noted at left upper arm/axilla IMPRESSION: No evidence of deep venous thrombosis in the left arm.
--- NOTE | 2017-07-28 21:34 | US ---
EXAMINATION TYPE: US scrotum with doppler. Grayscale and color Doppler Duplex imaging performed of isela saunders scrotum. DATE OF EXAM: 07/28/2017 COMPARISON: NONE CLINICAL HISTORY: Pain. left scrotal pain for 10+years due to trauma EXAM MEASUREMENTS: TESTICLES: Right Testicle: 3.1 x 2.3 x 2.0 cm Left Testicle: 2.7 x 2.1 x 1.9 cm EPIDIDYMIS HEAD: Right Epididymis: 0.8 cm Left Epididymis: 0.9 cm Doppler performed to assess for testicular vascularity; good bilateral color flow and waveforms are s een. There is no evidence of testicular torsion. Presence of hydroceles: mild on the right Presence of varicoceles: no scanned area of pain toward right inguinal canal at another area of patients pain, normal appear soft tissue seen. IMPRESSION: No testicular torsion or mass. Small right-sided hydrocele. No evidence of a hernia.
[2017-07-28] MEDS ORDERED: NALOXONE 0.4 MG/ML 1 ML VIAL IV PRN (21:54)
[2017-07-28] MEDS ORDERED: HYDROcodone/APAP 5-325MG 1 EACH TAB PO PRN (21:54)
[2017-07-28] MEDS ORDERED: ACETAMINOPHEN TAB 325 MG TAB PO PRN (21:54)
[2017-07-28] MEDS ORDERED: oxyCODONE-APAP 5-325MG 1 EACH TAB PO SCH (22:00)
--- NOTE | 2017-07-28 22:16 | P.HPIM ---
History of Present Illness H&P Date: 07/28/17 Chief Complaint: Abdominal pain 77-year-old male with history of ulcerative colitis status post ileostomy placement presented to the emergency department because of worsening abdominal pain over the last several days. Patient went to his primary care physician's office and he was prescribed some omeprazole. After that he started having a rash mostly in the truncal, facial and bilateral upper extremities areas. His abdominal pain did not get better. He denied having any diarrhea or constipation but did have some nausea today, no vomiting. He does have right lower quadrant ileostomy. No fevers or chills. No chest pain but deep breathing hurts his stomach. He has a chronic indwelling Reyes catheter and the last time the catheter was changed was about a month ago. He stated that he keep changing it every month. Patient also notes that his left upper extremity was swollen today. Last month he was admitted to surgery service for melanoma excision in the left upper extremity as well as left axillary lymph node dissection. No pain or redness in the left upper extremity. In the emergency department patient was tachycardic with a heart rate in the 120s. He was found to have a urinary tract infection, initially refused to have computed tomography scan of the abdomen but when I talked to have about the necessity of having it he agreed to do it. Review of Systems 12 point review of system was performed, negative except for HPI Past Medical History Past Medical History: Cancer, Diabetes Mellitus, Hypertension, Skin Disorder Additional Past Medical History / Comment(s): urinary retention, hx. urinary tract infection, has a open area on stomach and pinpoint area on coccyx. Patient is in bed most of the time and has a w/c to get around the house. Has a Melanoma L upper arm.Has a reyes catheter and ileostomy. Hx. of ulcerative colitis. Severe frozen L shoulder. History of Any Multi-Drug Resistant Organisms: MRSA Date of last positivie culture/infection: 2011 MDRO Source:: Stomach wound Past Surgical History: Bowel Resection, Cholecystectomy, Tonsillectomy Additional Past Surgical History / Comment(s): Stent in LLL., Ileostomy with bowel resection 2006, Jun 08 2017- lypmnode removal- Past Anesthesia/Blood Transfusion Reactions: No Reported Reaction Past Psychological History: No Psychological Hx Reported, Depression Smoking Status: Never smoker Past Alcohol Use History: None Reported Past Drug Use History: None Reported - Past Family History Mother Family Medical History: Cancer Additional Family Medical History / Comment(s): Lymphoma Medications and Allergies Home Medications Medication Instructions Recorded Confirmed Type Metoprolol Tartrate [Lopressor] 50 mg PO HS 11/01/13 07/28/17 History oxyCODONE-APAP 5-325MG [Percocet 1 tab PO Q6H 11/01/13 07/28/17 History 5-325 mg] traZODone HCL [Desyrel] 100 mg PO HS 11/01/13 07/28/17 History Ascorbic Acid [Vitamin C] 1,000 mg PO DAILY 06/05/17 07/28/17 History Cholecalciferol [Vitamin D3] 400 unit PO DAILY@1200 06/05/17 07/28/17 History Cranberry Fruit Extract [Cranberry] 200 mg PO DAILY 06/05/17 07/28/17 History Ferrous Sulfate [Feosol] 325 mg PO DAILY 06/05/17 07/28/17 History Folic Acid 1 mg PO DAILY 06/05/17 07/28/17 History Nystatin 100,000Unit/gm Cream 1 applic TOPICAL DAILY 06/05/17 07/28/17 History [Mycostatin Cream] metFORMIN HCL [Glucophage] 500 mg PO BID 06/05/17 07/28/17 History Mesalamine [Canasa] 1,000 mg RECTAL HS 07/28/17 07/28/17 History Multivitamins, Thera [Multivitamin 1 tab PO DAILY 07/28/17 07/28/17 History (formulary)] Omeprazole [PriLOSEC] 20 mg PO DAILY 07/28/17 07/28/17 History Oxybutynin Chloride [Ditropan Oral 10 mg PO DAILY 07/28/17 07/28/17 History Soln] Allergies Allergy/AdvReac Type Severity Reaction Status Date / Time diphenhydramine HCl Allergy Itching Verified 07/28/17 18:15 [From Benadryl] latex Allergy Unknown Verified 07/28/17 18:15 morphine AdvReac Hallucinati Verified 07/28/17 18:15 ons Physical Exam Vitals: Vital Signs Temp Pulse Resp BP Pulse Ox 07/28/17 21:59 97.5 F L 07/28/17 21:21 106 H 18 117/59 96 07/28/17 19:49 114 H 20 126/66 97 07/28/17 17:54 97.3 F L 125 H 18 136/72 99 Intake and Output 07/28/17 07/28/17 07/28/17 06:59 14:59 22:59 Other: Weight 86.183 kg Constitutional: No acute distress, conversant, pleasant Eyes:Anicteric sclerae, moist conjunctiva, no lid-lag, PERRLA, ENMT: Oropharynx clear, no erythema, exudates Neck: Supple, FROM, no masses, or JVD, No carotid bruits, No thyromegaly Lungs: Clear to auscultation, Clear to percussion, Normal respiratory effort, no accessory muscle use Cardiovascular: Tachycardic, regular, No murmurs, gallops, or rubs, No peripheral edema Abdominal: Soft, diffusely tender especially in the periumbilical area, no guarding, rebound or rigidity, Normoactive bowel sounds, No hepatomegaly, No splenomegaly, No palpable mass . There is a chronic wound in the abdomen, packed. There is right lower quadrant ileostomy bag. Skin: Diffuse maculopapular rash especially in the facial, truncal in the bilateral upper extremities areas. Dry skin especially in the lower extremities. No subcutaneous nodules, stage II decubitus ulcer on the right buttocks. Extremities: Left upper extremity swollen, No digital cyanosis, No clubbing, Pedal pulses intact and symmetrical, Radial pulses intact and symmetrical, No calf tenderness Psychiatric: Alert and oriented to person, place and time, appropriate affect, intact judgement Neuro: General weakness, Sensation to light touch grossly present throughout, Cranial nerves II-XII grossly intact, no focal sensory deficits Results CBC & Chem 7: 07/28/17 19:18 07/28/17:18 Labs: Abnormal Lab Results - Last 24 Hours (Table) 07/28/17 07/28/17 07/28/17 Range/Units 19:18 19: 19: WBC 18.9 H (3.8-10.6) k/uL Neutrophils # 15.2 H (1.3-7.7) k/uL Eosinophils # 0.8 H (0-0.7) k/uL BUN 23 H (9-20) mg/dL Glucose 118 H (74-99) mg/dL AST 69 H (17-59) U/L Alkaline Phosphatase 151 H (38-126) U/L Total Creatine Kinase 36 L (55-170) U/L Albumin 3.2 L (3.5-5.0) g/dL Urine Protein (Negative) Urine Blood (Negative) Urine Bilirubin (Negative) Ur Leukocyte Esterase (Negative) Urine RBC (0-5) /hpf Urine WBC (0-5) /hpf Urine WBC Clumps (None) /hpf Urine Bacteria (None) /hpf Urine Mucus (None) /hpf 07/28/17 Range/Units 19:47 WBC (3.8-10.6) k/uL Neutrophils # (1.3-7.7) k/uL Eosinophils # (0-0.7) k/uL BUN (9-20) mg/dL Glucose (74-99) mg/dL AST (17-59) U/L Alkaline Phosphatase (38-126) U/L Total Creatine Kinase (55-170) U/L Albumin (3.5-5.0) g/dL Urine Protein 1+ H (Negative) Urine Blood Trace H (Negative) Urine Bilirubin 1+ H (Negative) Ur Leukocyte Esterase Large H (Negative) Urine RBC 17 H (0-5) /hpf Urine WBC >182 H (0-5) /hpf Urine WBC Clumps Many H (None) /hpf Urine Bacteria Many H (None) /hpf Urine Mucus Many H (None) /hpf Assessment and Plan Plan: #1 Acute urinary tract infection: Start treatment with ceftriaxone 1 g IV daily Need to change urinary catheter, communicated with RN Urine cultures sent in the emergency department #2 Abdominal pain Unclear etiology could be secondary to the urinary tract infection Computed tomography scan of the abdomen and pelvis, initially refused to have it but now agreed to it. [place] on Zofran when necessary #3 Left upper extremity swelling: Ultrasound was done, negative for DVT. Likely secondary to recent axillary lymph node dissection #4 Decubitus ulcer stage II Examined apply dressings, No signs of infection. #5 Diabetes type 2, essential hypertension, history of melanoma, history of ulcerative colitis All stable Resume home medications.
--- NOTE | 2017-07-28 22:43 | CT ---
EXAMINATION TYPE: CT abdomen pelvis w con DATE OF EXAM: 07/28/2017 COMPARISON: NONE HISTORY: Bladder infection. CT DLP: 1245.9 mGycm Automated exposure control for dose reduction was used. TECHNIQUE: Helical acquisition of images was performed from the lung bases through the pelvis. CONTRAST: Performed without Oral Contrast and with IV Contrast, patient injected with 100 mL of Isovue 300. FINDINGS: There are small bilateral pleural effusions. There is some infiltrate and atelectasis at th e posterior lung bases. There is a very small pericardial effusion. There is a 1.5 cm cyst in the anterior right lobe of the liver. Bile ducts are not dilated. Spleen ap pears normal. There is a 1 cm cyst in the body of the pancreas. There is inferior vena cava filter no frandy. Gallbladder appears absent. There are multiple bilateral renal cortical cysts. The largest measures 4 cm. There is no hydronephro sis. Ureters are not dilated. There is no retroperitoneal adenopathy. There is abdominal anterior wal l dehiscent. There is no evidence of a hernia. There is ileostomy in the right mid abdomen. There is parastomal hernia of the small bowel. Abdominal aorta is atheromatous. There is no ascites. There is Mcgregor catheter in the urinary bladder. Bladder is empty. There is no evidence of a bowel obstruction. There is apparent total colectomy. Th ere is a rectal stump. There are some spondylotic changes in the lumbar spine. I see no focal bone de struction. Prostate is enlarged. IMPRESSION: ILEOSTOMY WITH SMALL PARASTOMAL HERNIA. NO EVIDENCE OF A BOWEL OBSTRUCTION. SMALL PANCREATIC CYST. RENAL CORTICAL CYSTS. NO DILATED DUCTS. INFILTRATE AND ATELECTASIS AT THE LUNG BASES WITH PLEURAL EFFUSIONS.
[2017-07-29] MEDS: oxyCODONE-APAP 5-325MG 1 EACH TAB PO SCH ×5 (00:23→19:21)
[2017-07-29] MEDS: SODIUM CHLORIDE 0.9% 1,000 ML IV SCH ×5 (00:29→21:41)
[2017-07-29 07:26] LABS: Basophils % (A) 0 %; Eosinophils % (A) 11 %; HGB 13.8 gm/dL (13.0-17.5); Lymphocytes # (A) 2.3 k/uL (1.0-4.8); Lymphocytes % (A) 12 %; MCH 30.3 pg (25.0-35.0); MCV 94.7 fL (80.0-100.0); Mean Platelet Volume 7.1; Monocytes # (A) 0.7 k/uL (0-1.0); Monocytes % (A) 4 %; Neutrophils # (A) 13.5 k/uL (1.3-7.7); Neutrophils % (A) 73 %; Platelet Count 273 k/uL (150-450); RBC 4.54 m/uL (4.30-5.90); RDW 12.5 % (11.5-15.5); WBC 18.6 k/uL (3.8-10.6)
[2017-07-29 07:42] LABS: ALT 29 U/L (21-72); AST 62 U/L (17-59); Albumin 2.6 g/dL (3.5-5.0); Alkaline Phosphatase 137 U/L (38-126); Anion Gap 11 mmol/L; Blood Urea Nitrogen 19 mg/dL (9-20); Calcium 8.9 mg/dL (8.4-10.2); Carbon Dioxide 20 mmol/L (22-30); Chloride 108 mmol/L (98-107); Glucose 109 mg/dL (74-99); Magnesium 1.5 mg/dL (1.6-2.3); Phosphorus 3.3 mg/dL (2.5-4.5); Potassium 4.1 mmol/L (3.5-5.1); Sodium 139 mmol/L (137-145); Total Bilirubin 0.7 mg/dL (0.2-1.3); Total Protein 5.9 g/dL (6.3-8.2)
[2017-07-29 07:43] LABS: Glucose,Whole Blood 114 mg/dL (75-99)
[2017-07-29] MEDS: INSULIN ASPART 100 UNIT/ML 1 ML 10 ML VIAL SQ SCH ×4 (08:03→21:23)
[2017-07-29] MEDS: FERROUS SULFATE 325 MG TAB PO SCH (08:08)
[2017-07-29] MEDS: OXYBUTYNIN CHLORIDE 5 MG TAB PO SCH (08:08)
[2017-07-29] MEDS: FOLIC ACID 1 MG TAB PO SCH (08:09)
[2017-07-29] MEDS ORDERED: SODIUM CHLORIDE 0.9% 1,000 ML IV ONE (08:42)
[2017-07-29] MEDS ORDERED: metFORMIN 500 MG TAB PO SCH (09:00)
[2017-07-29] MEDS ORDERED: cefTRIAXone IN SWFI 1,000 MG/10 ML SYRINGE IVP SCH (09:00)
--- NOTE | 2017-07-29 09:40 | XR ---
EXAMINATION TYPE: XR chest 2V DATE OF EXAM: 07/29/2017 HISTORY: sepsis rule out pneumonia . REFERENCE: NONE. FINDINGS: There is left basilar infiltrate. There is a small left effusion. The heart is not enlarged . There is a nodular opacity in the right midlung. IMPRESSION: 1. LEFT LOWER LOBE INFILTRATE WITH A CONCOMITANT EFFUSION. 2. QUESTIONABLE, SOLITARY PULMONARY NODULE IN THE RIGHT.
[2017-07-29] MEDS: NYSTATIN 100,000UNIT/GM CREAM 30 GM TUBE TOPICAL SCH (10:10)
[2017-07-29] MEDS: MAGNESIUM SULFATE-D5W PMX 1 GM in DEXTROSE/WATER 1 100ML.BAG IVPB SCH ×2 (10:58→13:33)
--- NOTE | 2017-07-29 12:03 | P.PN ---
Subjective Progress Note Date: 07/29/17 Patient requesting to go home today, discussed his care indicated and that he is not better as yet or ready are stable for discharge. Patient complaining of the bed is uncomfortable. Has not had his Mcgregor catheter replaced. Objective - Vital Signs Vital signs: Vital Signs Temp 95.8 F L 07/29/17 07:00 Pulse 112 H 07/29/17 07:00 Resp 16 07/29/17 07:00 BP 126/63 07/29/17 07:00 Pulse Ox 96 07/29/17 07:00 Intake & Output 07/28/17 07/29/17 07/29/17 18:59 06:59 18:59 Intake Total 1880 Balance 1880 Weight 86.183 kg Intake: Intake, IV Titration 800 Amount Sodium Chloride 0.9% 1, 800 000 ml @ 100 mls/hr IV . Q10H [facility]END[facility] TO [facility] Rx#:[id number] Oral 1080 Other: Voiding Method Indwelling Catheter Indwelling Catheter - Exam Constitutional: No acute distress, conversant, pleasant Eyes: Anicteric sclerae, moist conjunctiva, no lid-lag, PERRLA ENMT: NC/AT,Oropharynx clear, no erythema, exudates Neck:Supple, FROM, no masses, or JVD, No carotid bruits; No thyromegaly Lungs: Clear to auscultation, Clear to percussion, Normal respiratory effort, no accessory muscle use Cardiovascular: Tachycardic regular rhythm No murmurs, gallops, or rubs no peripheral edema Abdominal: Soft Nontender, nom distended, no guarding, no rebound or rigidity, Normoactive bowel sounds No hepatomegaly, No splenomegaly, No palpable mass No abdominal wall hernia noted Skin: Normal temperature, tone, texture, turgor, No induration No subcutaneous nodules, No rash, lesions, No ulcers Extremities:No digital cyanosis No clubbing, Pedal pulses intact and symmetrical Radial pulses intact and symmetrical Normal gait and station, No calf tenderness Psychiatric: Alert and oriented to person, place and time, Appropriate affect Intact judgement Neuro: Muscles Strength 5/5 in all 4 extremities, Sensation to light touch grossly present throughout, Cranial nerves II-XII grossly intact. No focal sensory deficits - Labs CBC & Chem 7: 07/29/17 06:40 07/29/17 06:40 Labs: Abnormal Lab Results - Last 24 Hours (Table) 07/28/17 07/28/17 07/28/17 Range/Units 19:18 19:18 19:18 WBC 18.9 H (3.8-10.6) k/uL Neutrophils # 15.2 H (1.3-7.7) k/uL Eosinophils # 0.8 H (0-0.7) k/uL Chloride (98-107) mmol/L Carbon Dioxide (22-30) mmol/L BUN 23 H (9-20) mg/dL Glucose 118 H (74-99) mg/dL POC Glucose (mg/dL) (75-99) mg/dL Magnesium (1.6-2.3) mg/dL AST 69 H (17-59) U/L Alkaline Phosphatase 151 H (38-126) U/L Total Creatine Kinase 36 L (55-170) U/L Total Protein (6.3-8.2) g/dL Albumin 3.2 L (3.5-5.0) g/dL Urine Protein (Negative) Urine Blood (Negative) Urine Bilirubin (Negative) Ur Leukocyte Esterase (Negative) Urine RBC (0-5) /hpf Urine WBC (0-5) /hpf Urine WBC Clumps (None) /hpf Urine Bacteria (None) /hpf Urine Mucus (None) /hpf 07/28/17 07/29/17 07/29/17 Range/Units 19:47 06:40 06:40 WBC 18.6 H (3.8-10.6) k/uL Neutrophils # 13.5 H (1.3-7.7) k/uL Eosinophils # 2.0 H (0-0.7) k/uL Chloride 108 H (98-107) mmol/L Carbon Dioxide 20 L (22-30) mmol/L BUN (9-20) mg/dL Glucose 109 H (74-99) mg/dL POC Glucose (mg/dL) (75-99) mg/dL Magnesium 1.5 L (1.6-2.3) mg/dL AST 62 H (17-59) U/L Alkaline Phosphatase 137 H (38-126) U/L Total Creatine Kinase (55-170) U/L Total Protein 5.9 L (6.3-8.2) g/dL Albumin 2.6 L (3.5-5.0) g/dL Urine Protein 1+ H (Negative) Urine Blood Trace H (Negative) Urine Bilirubin 1+ H (Negative) Ur Leukocyte Esterase Large H (Negative) Urine RBC 17 H (0-5) /hpf Urine WBC >182 H (0-5) /hpf Urine WBC Clumps Many H (None) /hpf Urine Bacteria Many H (None) /hpf Urine Mucus Many H (None) /hpf 07/29/17 Range/Units 07:34 WBC (3.8-10.6) k/uL Neutrophils # (1.3-7.7) k/uL Eosinophils # (0-0.7) k/uL Chloride (98-107) mmol/L Carbon Dioxide (22-30) mmol/L BUN (9-20) mg/dL Glucose (74-99) mg/dL POC Glucose (mg/dL) 114 H (75-99) mg/dL Magnesium (1.6-2.3) mg/dL AST (17-59) U/L Alkaline Phosphatase (38-126) U/L Total Creatine Kinase (55-170) U/L Total Protein (6.3-8.2) g/dL Albumin (3.5-5.0) g/dL Urine Protein (Negative) Urine Blood (Negative) Urine Bilirubin (Negative) Ur Leukocyte Esterase (Negative) Urine RBC (0-5) /hpf Urine WBC (0-5) /hpf Urine WBC Clumps (None) /hpf Urine Bacteria (None) /hpf Urine Mucus (None) /hpf Microbiology - Last 24 Hours (Table) 07/28/17 19:47 Urine Culture - Preliminary Urine,Catheterized - Imaging and Cardiology CT scan - abdomen: other (Ileostomy with small parastomal hernia no evidence of bowel obstruction. Small pancreatic cyst renal cortical cyst or dilated ducts) CT scan - chest: other (Infiltrate and atelectasis of the lung bases with pleural effusions) Assessment and Plan (1) Sepsis Narrative/Plan: * Patient still tachycardic but normotensive, we'll bolus another 1 L normal saline and increase his maintenance fluids to 125 cc/hr * Patient with a leukocytosis of 18.9 * Urine cultures pending we'll order blood cultures 2, checks x-ray indicating a left lower lobe infiltrate with pleural effusion will start Levaquin 750 mg IV daily, we'll discontinue Rocephin and start Zosyn * Continue to monitor closely Current Visit: Yes Status: Acute Code(s): A41.9 - SEPSIS, UNSPECIFIED ORGANISM SNOMED Code(s): 92578996 (2) UTI (urinary tract infection) Narrative/Plan: * Urine cultures pending * Continue with Zosyn * Dr. Mittal consulted for replacement of the patient's indwelling catheter as the patient is septic with a UTI Current Visit: Yes Status: Acute Code(s): N39.0 - URINARY TRACT INFECTION, SITE NOT SPECIFIED SNOMED Code(s): 97228994 (3) Pneumonia Narrative/Plan: * Initiated breathing nebulized breathing treatments, start incentive spirometry * Check sputum culture * Continue with IV Levaquin Current Visit: Yes Status: Acute Code(s): J18.9 - PNEUMONIA, UNSPECIFIED ORGANISM SNOMED Code(s): 966328168 (4) Dehydration Narrative/Plan: * Continue with hydration Current Visit: Yes Status: Acute Code(s): E86.0 - DEHYDRATION SNOMED Code( s): 65121832 (5) Hypomagnesemia Narrative/Plan: * Replace his magnesium today and recheck tomorrow Current Visit: Yes Status: Acute Code(s): E83.42 - HYPOMAGNESEMIA SNOMED Code(s): 094081272
[2017-07-29] MEDS ORDERED: IPRATROPIUM-ALBUTEROL 3 ML NEB INHALATION PRN (12:05)
[2017-07-29] MEDS ORDERED: PIPERACILLIN-TAZOBACTAM 3.375 GM in DEXTROSE/WATER 1 50ML.BAG IVPB SCH (13:00)
[2017-07-29] MEDS: guaiFENesin 600 MG TABLET.ER PO SCH ×2 (13:53→21:22)
[2017-07-29 13:56] LABS: Glucose,Whole Blood 142 mg/dL (75-99)
[2017-07-29] MEDS: SODIUM CHLORIDE 0.9% 500 ML IV SCH ×5 (15:16→19:24)
[2017-07-29] MEDS: ONDANSETRON 4 MG/2 ML VIAL IVP PRN (15:16)
[2017-07-29] MEDS: LEVOFLOXACIN 750MG-D5W PMX 750 MG in DEXTROSE/WATER 1 150ML.BAG IVPB SCH (15:25)
[2017-07-29 16:53] LABS: Glucose,Whole Blood 109 mg/dL (75-99)
[2017-07-29] MEDS: PIPERACILLIN-TAZOBACTAM 3.375 GM in DEXTROSE/WATER 1 50ML.BAG IVPB SCH (17:27)
--- NOTE | 2017-07-29 18:04 | P.SEPSIS ---
Sepsis - Sepsis Sepsis Focused Exam #1 Sepsis Focused Exam Date: 07/29/17 Sepsis Focused Exam Time: 18:03 Sepsis Focused Exam Complete: Yes Vital Signs & RN Notes Reviewed: Yes Capillary Refill: < 2 Seconds: Fingers Peripheral Pulses: Weak: Radial (R), Radial (L), Posterior Tibialis (R), Posterior Tibialis (L), Dorsalis Pedis (R), Dorsalis Pedis (L) Skin Color: Erythema Respiratory Exam: normal lung sounds Cardiovascular Exam: tachycardia
[2017-07-29 20:29] LABS: Glucose,Whole Blood 134 mg/dL (75-99)
[2017-07-29] MEDS ORDERED: MESALAMINE 1,000 MG SUPP RECTAL SCH (21:00)
[2017-07-29] MEDS ORDERED: traZODone HCL 50 MG TAB PO SCH (21:00)
[2017-07-29] MEDS ORDERED: METOPROLOL TARTRATE 50 MG TAB PO SCH (21:00)
[2017-07-29] MEDS ORDERED: hydrOXYzine HCL 25 MG TAB PO PRN (22:02)
[2017-07-30] MEDS: PIPERACILLIN-TAZOBACTAM 3.375 GM in DEXTROSE/WATER 1 50ML.BAG IVPB SCH ×3 (00:13→16:32)
[2017-07-30] MEDS: oxyCODONE-APAP 5-325MG 1 EACH TAB PO SCH ×4 (01:00→18:59)
[2017-07-30] MEDS: SODIUM CHLORIDE 0.9% 1,000 ML IV SCH ×4 (01:03→12:43)
[2017-07-30 04:55] VITALS: RESP 18
[2017-07-30 07:05] LABS: Glucose,Whole Blood 72 mg/dL (75-99)
[2017-07-30] MEDS: INSULIN ASPART 100 UNIT/ML 1 ML 10 ML VIAL SQ SCH ×3 (07:13→17:36)
[2017-07-30 07:28] LABS: Basophils % (A) 0 %; Eosinophils # (A) 1.7 k/uL (0-0.7); Eosinophils % (A) 10 %; HCT 41.8 % (39.0-53.0); HGB 13.6 gm/dL (13.0-17.5); Hypochromasia Slight; Lymphocytes # (A) 1.6 k/uL (1.0-4.8); Lymphocytes % (A) 9 %; MCH 31.5 pg (25.0-35.0); MCHC 32.4 g/dL (31.0-37.0); MCV 97.2 fL (80.0-100.0); Mean Platelet Volume 6.9; Monocytes # (A) 0.5 k/uL (0-1.0); Monocytes % (A) 3 %; Neutrophils # (A) 12.8 k/uL (1.3-7.7); Neutrophils % (A) 77 %; Platelet Count 207 k/uL (150-450); RBC 4.31 m/uL (4.30-5.90); RDW 12.7 % (11.5-15.5); WBC 16.7 k/uL (3.8-10.6)
[2017-07-30 07:38] LABS: Anion Gap 11 mmol/L; Blood Urea Nitrogen 15 mg/dL (9-20); Calcium 8.1 mg/dL (8.4-10.2); Carbon Dioxide 18 mmol/L (22-30); Chloride 110 mmol/L (98-107); Glucose 80 mg/dL (74-99); Magnesium 1.7 mg/dL (1.6-2.3); Potassium 4.2 mmol/L (3.5-5.1); Sodium 139 mmol/L (137-145)
[2017-07-30] MEDS: guaiFENesin 600 MG TABLET.ER PO SCH (08:21)
[2017-07-30] MEDS: OXYBUTYNIN CHLORIDE 5 MG TAB PO SCH (08:21)
[2017-07-30] MEDS: FERROUS SULFATE 325 MG TAB PO SCH (08:22)
[2017-07-30] MEDS: NYSTATIN 100,000UNIT/GM CREAM 30 GM TUBE TOPICAL SCH (08:22)
[2017-07-30] MEDS: FOLIC ACID 1 MG TAB PO SCH (08:22)
[2017-07-30] MEDS ORDERED: PANTOPRAZOLE 40 MG/10 ML VIAL IV SCH (09:00)
[2017-07-30 11:34] LABS: Glucose,Whole Blood 89 mg/dL (75-99)
--- NOTE | 2017-07-30 12:24 | P.PN ---
Subjective Progress Note Date: 07/30/17 Patient requesting to go home tomorrow. Patient complaining of the bed is uncomfortable. Has not had his Mcgregor catheter replaced. Reports that he is feeling better today. No acute events overnight Objective - Vital Signs Vital signs: Vital Signs Temp 97.7 F 07/30/17 07:38 Pulse 94 07/30/17 07:38 Resp 18 07/30/17 07:38 BP 114/54 07/30/17 07:38 Pulse Ox 100 07/30/17 07:38 Intake & Output 07/29/17 07/30/17 07/30/17 18:59 06:59 18:59 Intake Total 2170 Output Total 300 300 Balance -300 2170 -300 Weight 86.183 kg 86.183 kg Intake: Intake, IV Titration 1450 Amount Piperacillin-Tazobactam 3 50 .375 gm In Dextrose/Water 1 50ml.bag @ 12.5 mls/hr IVPB Q8HR [facility] Rx#: [id number] Sodium Chloride 0.9% 1, 400 000 ml @ 100 mls/hr IV . Q10H [facility] Rx#:[id number] Sodium Chloride 0.9% 1, 1000 000 ml @ 125 mls/hr IV . Q8H [facility] Rx#:[id number] Oral 720 Output: Urine 300 300 Other: Voiding Method Indwelling Catheter Indwelling Catheter Indwelling Catheter - Exam Constitutional: No acute distress, conversant, pleasant Eyes: Anicteric sclerae, moist conjunctiva, no lid-lag, PERRLA ENMT: NC/AT,Oropharynx clear, no erythema, exudates Neck:Supple, FROM, no masses, or JVD, No carotid bruits; No thyromegaly Lungs: Clear to auscultation, Clear to percussion, Normal respiratory effort, no accessory muscle use Cardiovascular: Tachycardic regular rhythm No murmurs, gallops, or rubs no peripheral edema Abdominal: Soft Nontender, nom distended, no guarding, no rebound or rigidity, Normoactive bowel sounds No hepatomegaly, No splenomegaly, No palpable mass No abdominal wall hernia noted, ostomy bag with output Skin: Normal temperature, tone, texture, turgor, No induration No subcutaneous nodules, No rash, lesions, No ulcers Extremities:No digital cyanosis No clubbing, Pedal pulses intact and symmetrical Radial pulses intact and symmetrical Normal gait and station, No calf tenderness Psychiatric: Alert and oriented to person, place and time, Appropriate affect Intact judgement Neuro: Muscles Strength 5/5 in all 4 extremities, Sensation to light touch grossly present throughout, Cranial nerves II-XII grossly intact. No focal sensory deficits - Labs CBC & Chem 7: 07/30/17 06:52 07/30/17 06:52 Labs: Abnormal Lab Results - Last 24 Hours (Table) 07/29/17 07/29/17 07/29/17 Range/Units 13:50 13:54 16:52 WBC (3.8-10.6) k/uL Neutrophils # (1.3-7.7) k/uL Eosinophils # (0-0.7) k/uL Chloride (98-107) mmol/L Carbon Dioxide (22-30) mmol/L POC Glucose (mg/dL) 142 H 109 H (75-99) mg/dL Plasma Lactic Acid Neel 4.1 H* (0.7-2.0) mmol/L Calcium (8.4-10.2) mg/dL 07/29/17 07/29/17 07/30/17 Range/Units 17:42 20:10 06:52 WBC 16.7 H (3.8-10.6) k/uL Neutrophils # 12.8 H (1.3-7.7) k/uL Eosinophils # 1.7 H (0-0.7) k/uL Chloride (98-107) mmol/L Carbon Dioxide (22-30) mmol/L POC Glucose (mg/dL) 134 H (75-99) mg/dL Plasma Lactic Acid Neel 3.9 H* (0.7-2.0) mmol/L Calcium (8.4-10.2) mg/dL 07/30/17 07/30/17 Range/Units 06:52 07:03 WBC (3.8-10.6) k/uL Neutrophils # (1.3-7.7) k/uL Eosinophils # (0-0.7) k/uL Chloride 110 H (98-107) mmol/L Carbon Dioxide 18 L (22-30) mmol/L POC Glucose (mg/dL) 72 L (75-99) mg/dL Plasma Lactic Acid Neel (0.7-2.0) mmol/L Calcium 8.1 L (8.4-10.2) mg/dL Microbiology - Last 24 Hours (Table) 07/28/17 19:47 Urine Culture - Preliminary Urine,Catheterized Gram Neg Bacilli Assessment and Plan (1) Severe sepsis Narrative/Plan: * Patient tachycardia has resolved, decrease his maintenance to 100 mL an hour * Patient with a leukocytosis trending down from 18.9 to 16.3 * Urine cultures preliminary gram-negative bacilli, blood cultures pending checks x-ray indicating a left lower lobe infiltrate with pleural effusion will start Levaquin 750 mg IV daily, continue Zosyn * Continue to monitor closely Current Visit: Yes Status: Acute Code(s): A41.9 - SEPSIS, UNSPECIFIED ORGANISM; R65.20 - SEVERE SEPSIS WITHOUT SEPTIC SHOCK SNOMED Code(s): 33240595 (2) UTI (urinary tract infection) Narrative/Plan: * Urine cultures pending * Continue with Zosyn * Patient agreeable to have nurse attempt to change his Mcgregor catheter today Current Visit: Yes Status: Acute Code(s): N39.0 - URINARY TRACT INFECTION, SITE NOT SPECIFIED SNOMED Code(s): 30053425 (3) Pneumonia Narrative/Plan: * Initiated breathing nebulized breathing treatments, start incentive spirometry * Check sputum culture * Continue with IV Levaquin Current Visit: Yes Status: Acute Code(s): J18.9 - PNEUMONIA, UNSPECIFIED ORGANISM SNOMED Code(s): 370443447 (4) Dehydration Current Visit: Yes Status: Acute Code(s): E86.0 - DEHYDRATION SNOMED Code( s): 29962571 (5) Hypomagnesemia Narrative/Plan: * Replace his magnesium today and recheck tomorrow Current Visit: Yes Status: Resolved Code(s): E83.42 - HYPOMAGNESEMIA SNOMED Code(s): 614311525
[2017-07-30] MEDS: LEVOFLOXACIN 750MG-D5W PMX 750 MG in DEXTROSE/WATER 1 150ML.BAG IVPB SCH (12:42)
[2017-07-30] MEDS ORDERED: LIDOCAINE URO-JET JELLY 2% 5 ML KIT URETHRAL ONE (12:49)
[2017-07-30 14:56] VITALS: BP 115/60; PULSE 102; TEMP 98.2
--- NOTE | 2017-07-30 16:08 | US ---
EXAMINATION TYPE: US venous doppler duplex LE RT DATE OF EXAM: 07/30/2017 3:45 PM COMPARISON: NONE CLINICAL HISTORY: 77-year-old male cold foot with pain. SIDE PERFORMED: right TECHNIQUE: The lower extremity deep venous system is examined utilizing real time linear array sonog radha with graded compression, doppler sonography and color-flow sonography. FINDINGS: Massage Therapist notes: Patient has very limited mobility and had a very hard time adducting his leg. He has pitting edema in his legs with very poor venous return. Study technically difficult and somewhat limited by these factors. VESSELS IMAGED: External Iliac Vein (EIV) Common Femoral Vein Deep Femoral Vein Greater Saphenous Vein * Femoral Vein Popliteal Vein Small Saphenous Vein * Proximal Calf Veins (* superficial vessels) Right Leg: Unable to see flow in proximal femoral vein, thready flow seen in femoral vein mid and dis yuki, femoral vein does not compress. Positive for DVT. Unable to visualized popliteal vein mid or distal. This may be due to poor venous return or chronic D VT. There is no flow noted in popliteal artery. Patient has a cold blue foot. IMPRESSION: 1. Very limited exam. However, the exam is positive for DVT, possible acute on chronic DVT as there i s nonocclusive thrombus within portions of the superficial and upper popliteal vein but no flow seen in the upper femoral vein. The mid and lower popliteal vein could not be visualized on this exam. 2. The clerical support specialist identifies a vessel which appears to represent the popliteal artery given wall jenna cifications. There is echogenic material within and no flow detected. Popliteal artery thrombosis is suggested. Further clinical correlation is recommended. Consider vascular surgery consultation. Critical findings called to nurse Yo on [facility] at 4:03pm.
[2017-07-30 16:25] LABS: Appearance,Urine Cloudy (Clear); Bacteria,Urine Occasional /hpf; Bilirubin,Urine 1+ (Negative); Blood,Urine Large (Negative); Color,Urine Light Red; Glucose,Urine (UA) Negative (Negative); Ketones,Urine Trace (Negative); Leukocyte Esterase,Urine Large (Negative); Mucus,Urine Rare /hpf; Nitrite,Urine Negative (Negative); Protein,Urine 1+ (Negative); RBC,Urine 91 /hpf (0-5); Specific Gravity,Urine 1.035 (1.001-1.035); Urobilinogen,Urine <2.0 mg/dL (<2.0); WBC,Urine >182 /hpf (0-5)
[2017-07-30 17:03] LABS: Glucose,Whole Blood 71 mg/dL (75-99)
[2017-07-30] MEDS ORDERED: HEPARIN SODIUM,PORCINE 10,000 UNIT/ML 1 ML VIAL IV ONE (17:09)
[2017-07-30] MEDS ORDERED: HEPARIN SODIUM,PORCINE 5,000 UNIT/ML 1 ML VIAL IV PRN (17:09)
[2017-07-30] MEDS ORDERED: HEPARIN SOD,PORK IN 0.45% NACL 25,000 UNIT in 0.45% NACL 1 500ML.BAG IV SCH (17:15)
[2017-07-30] MEDS ORDERED: ASPIRIN 325 MG TAB PO SCH (17:30)
[2017-07-30] MEDS: HYDROmorphone 2 MG TAB PO PRN ×2 (18:02→20:13)
[2017-07-30 18:14] LABS: Basophils % (A) 0 %; Eosinophils # (A) 1.3 k/uL (0-0.7); Eosinophils % (A) 8 %; HCT 39.1 % (39.0-53.0); HGB 12.9 gm/dL (13.0-17.5); Lymphocytes # (A) 1.3 k/uL (1.0-4.8); Lymphocytes % (A) 8 %; MCH 31.7 pg (25.0-35.0); MCHC 32.9 g/dL (31.0-37.0); MCV 96.1 fL (80.0-100.0); Mean Platelet Volume 6.6; Monocytes # (A) 0.5 k/uL (0-1.0); Monocytes % (A) 3 %; Neutrophils # (A) 13.6 k/uL (1.3-7.7); Neutrophils % (A) 81 %; Platelet Count 191 k/uL (150-450); RBC 4.07 m/uL (4.30-5.90); RDW 12.6 % (11.5-15.5); WBC 16.9 k/uL (3.8-10.6)
[2017-07-30 18:24] LABS: INR 1.3 (<1.2)
[2017-07-30 18:25] LABS: Partial Thromboplastin Time 37.7 sec (22.0-30.0); Prothrombin Time 11.9 sec (9.0-12.0)
[2017-07-30] MEDS: ONDANSETRON 4 MG/2 ML VIAL IVP PRN (19:35)
[2017-07-30 20:03] LABS: Glucose,Whole Blood 69 mg/dL (75-99)
[2017-07-30] MEDS ORDERED: ALPRAZolam 0.25 MG TAB PO STA (20:04)
--- NOTE | 2017-07-30 23:00 | CONS ---
CONSULTATION DATE OF SERVICE: 07/30/2017. HISTORY: This patient was found to have a cold mottled right lower extremity. According to the patient, the patient had been admitted on Monday with a history of sepsis, tachycardia, UTI and pneumonia. The patient had colitis surgery done about 11 years ago. Since then, he is bedridden, he does not walk. The patient has history of diabetes on diet control. No history of coronary artery disease. SURGICAL HISTORY: Patient had a ulcerative colitis surgery done at the [facility] and has an ileostomy. 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 EXAMINATION: Patient was seen in his room. Neck is supple. He has marked swelling and edema of the left upper extremity. Radial pulses are present. On the left side femoral is present. On the right side femoral is present. The patient has a mottled right lower extremity with no capillary refill. No Doppler signal noted on the right foot. 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 No capillary refill noted. The patient had an ultrasound of the leg which showed positive for DVT, acute on chronic. There is a thrombus noted in the superficial and popliteal vein, but no flow seen in the femoral vein. The patient also has no flow noted to the popliteal artery. PLAN: We will start him on heparin. The family wants this patient to be transferred to [facility]. At this point prognosis is guarded. Patient has mottled right lower extremity with no capillary refill and no Doppler signal. The patient has not walked for the past 11 years. The patient has some Doppler signal in the left foot. We started him on heparin. We will discuss with Dr. Mcelroy who is the hospitalist stallion keeper, and patient will be transferred to [facility]. MMREJIL / IJN: [id number] /
--- NOTE | 2017-08-08 17:49 | CDI ---
Last Revision, March 2017 Documentation Clarification Form Date: 08/08/2017 12:00:00 AM From: EVER Gamez; Irma Hodges, Facilities Operator Phone: If you have a question about this query, please contact Irma Hodges Facilities Operator at [phone] between 8am and 5pm. Admit Date: 07/28/2017 8:16:00 PM Patient Name: Aurelio Mireles Visit Number: [id number] Discharge Date: 07/30/2017 ATTENTION: The Clinical Documentation Specialists (CDI) and [facility] Coding Staff appreciate your assistance in clarifying documentation. Please respond to the clarification below the line at the bottom and electronically sign. The CDI & [facility] Coding staff will review the response and follow-up if needed. Please note: Queries are made part of the Legal Health Record. If you have any questions, please contact the author of this message via ITS. Dr. Pj Carson A diagnosis of UTI has been documented in the record. . History/Risk factors: Bedridden, presented with pneumonia, DVT and stage II decubitus Per documentation in the H&P, this patient was admitted with an indwelling Mcgregor catheter Vitals in ED: temp 97.3, pulse 125, BP 126/66, WBC 18.9 Urine cultures positive for gram neg bacilli and pseudomonas. In your professional opinion, can you please clarify the etiology of the UTI, if known? Mcgregor catheter MTDD
== END 2017-07-30 20:42 | disposition short-term general hospital (02) | DRG 698 ==
LOC: EC 17:46 → 5MS5E 20:16
PROVIDERS: ADMIT Family Medicine; ATTEND Family Medicine
DX: T83.511A Infection and inflammatory reaction due to indwelling urethral catheter, initial encounter (principal); A41.9 Sepsis, unspecified organism; R65.20 Severe sepsis without septic shock; J18.9 Pneumonia, unspecified organism; I82.432 Acute embolism and thrombosis of left popliteal vein; E11.9 Type 2 diabetes mellitus without complications; E86.0 Dehydration; L89.92 Pressure ulcer of unspecified site, stage 2; I82.532 Chronic embolism and thrombosis of left popliteal vein; E83.42 Hypomagnesemia; N39.0 Urinary tract infection, site not specified; I10 Essential (primary) hypertension; K21.9 Gastro-esophageal reflux disease without esophagitis; L50.0 Allergic urticaria; Z74.01 Bed confinement status; Z79.84 Long term (current) use of oral hypoglycemic drugs; Z79.899 Other long term (current) drug therapy; Z80.7 Family history of other malignant neoplasms of lymphoid, hematopoietic and related tissues; Z85.820 Personal history of malignant melanoma of skin; Z87.440 Personal history of urinary (tract) infections; Z90.49 Acquired absence of other specified parts of digestive tract; Z93.2 Ileostomy status; Z93.3 Colostomy status; Z79.891 Long term (current) use of opiate analgesic; Z88.5 Allergy status to narcotic agent; Z88.8 Allergy status to other drugs, medicaments and biological substances; Z91.040 Latex allergy status
CPT/HCPCS: 36415; 71046; 74022; 74177; 76870; 80048; 80053; 81001; 82550; 82553; 83605; 83735; 84100; 84484; 85025; 85610; 85730; 87040; 87077; 87086; 87186; 93005; 93975; 94760; 96361; 96374; 96375; 99285